=== PATIENT | female | born 1990 | race Caucasian/White ===

== ENCOUNTER 2017-10-26 06:50 | Day surgery (SDC) | payer MEDICAID ==
[2017-10-24 09:17] LABS: BASOPHILS 0 % (0-2); EOSINOPHILS 1.4 % (0-7); HEMATOCRIT 41.5 % (36.0-48.0); HEMOGLOBIN 14.4 g/dL (12-16); LYMPHOCYTES 38.2 % (15-50); MCHC 34.7 g/dL (31.0-37.0); MCV 92.2 fL (80.0-100.0); MEAN PLATELET VOLUME 9.6 fL (7.4-10.4); MONOCYTES 7.4 % (2-11); PLATELET COUNT 239 10x3/uL (130-400)
[~2017-10-26] VITALS: Ht 190.5 cm; Wt 79.4 kg
--- NOTE | ~2017-10-26 | OP ---
PATIENT NAME: MARISELA LARA MEDICAL RECORD: [id number] :89 LOCATION:D.OPS ADMISSION DATE: SURGEON: FAITH VELÁSQUEZ MD DATE OF OPERATION: 10/26/2017 PREOPERATIVE DIAGNOSES: 1. Pelvic pain. 2. Suspected history of endometriosis. POSTOPERATIVE DIAGNOSES: 1. Diffuse endometriosis implants. 2. Uterine texture consistent with adenomyosis. PROCEDURE: Diagnostic laparoscopy. SURGEON: Faith Velásquez MD INTRAVENOUS FLUIDS: Per anesthesia record. SPECIMENS: None. FINDINGS: As mentioned. COMPLICATIONS: None apparent. PROCEDURE: The patient was taken to the operating room where general anesthesia was achieved without difficulty. The patient was then prepped and draped in normal sterile fashion in the dorsal lithotomy position in the [facility]. The bladder was drained of approximately 100 cc of clear yellow urine and a sponge stick was then placed into the vagina for uterine elevation. At this point, attention was turned to the abdomen where a 5-mm incision was made in the umbilicus and the bladeless trocar was used to enter the intraperitoneal space under direct visualization of the laparoscope. The introducer was removed and the patient was insufflated and opening pressure was found to be less than 5 mmHg. Intraperitoneal placement was confirmed by the laparoscope. Following complete insufflation, a second port was placed approximately 5 cm above the pubic symphysis in the midline. A small skin incision of 5 mm was made in the skin and the bladeless trocar was then used to enter the port under direct visualization of the intra-abdominal laparoscope. Survey of the abdomen and pelvis was performed, the patient was then desufflated. The ports removed and the skin repaired with 3-0 Monocryl. The patient tolerated the procedure well and was transported to postanesthesia recovery stable without incident. TRANSINT:[id number] Voice Confirmation ID: [id number] DOCUMENT ID: [id number] FAITH VELÁSQUEZ MD at 1723 CC: [id number] DICTATION DATE: 11/04/17610 [employer] LETTER[employer] MACHINE OPERATOR: 11/04/17 1119 [facility] 10/26/17 [place] [address]
[~2017-10-26 06:50] MED LIST: BUSPAR10 MG PO; FOLATE0.4 MG PO; HYDROCODONE-APA1 TAB PO; IBUPROFEN600 MG PO; LAMICTAL100 MG PO; LAMICTAL200 MG PO; LATUDA40 MG PO; MINIPRESS2 MG PO; NATAZIA 28 TAB1 EACH PO; PRENATAL COMPLE1 TAB PO; XANAX0.5 MG PO; ZOVIRAX400 MG PO
[2017-10-26 07:07] VITALS: BP 101/57; Ht 190.5 cm; Wt 79.4 kg
[2017-10-26 10:19] LABS: HCG URINE NEGATIVE (NEGATIVE)
== END 2017-10-26 12:58 | disposition home or self-care (01) ==
LOC: D.OPS 06:50 → D.PAN 07:30 → D.OPS 07:30
PROVIDERS: Obstetrics & Gynecology
DX: R10.2 Pelvic and perineal pain (principal); F17.200 Nicotine dependence, unspecified, uncomplicated; J45.909 Unspecified asthma, uncomplicated; F31.9 Bipolar disorder, unspecified; B00.9 Herpesviral infection, unspecified; N80.9 Endometriosis, unspecified; Z01.812 Encounter for preprocedural laboratory examination